=== PATIENT | male | born 1965 | race Caucasian/White ===

== ENCOUNTER 2016-11-24 15:08 | Emergency (ER) | payer OTHER ==
[~2016-11-24] VITALS: Ht 177.8 cm; Wt 83.9 kg
[2016-11-24 15:15] VITALS: BP 135/82
--- NOTE | 2016-11-24 16:01 | ED UPPER/LOWER EXTREMITY COMPL ---
History of Present Illness General Chief Complaint: Laceration Procedure Stated Complaint: PT NEEDS LACERATION TO THE LEFT ARM Source: patient Exam Limitations: no limitations Vital Signs & Intake/Output Vital Signs & Intake/Output Vital Signs Date Time Temp Pulse Resp B/P B/P Pulse O2 O2 Flow FiO2 Mean Ox Delivery Rate 11/24 1649 Room Air 11/24 1515 96.9 72 18 135/82 100 Room Air Allergies Coded Allergies: NO KNOWN ALLERGIES (05/26/11) Reconcile Medications No Known Home Medications Triage Note: PT TO ED FOR LAC TO L FOREARM - NEEDS TETANUS. Triage Nurses Notes Reviewed? yes Onset: Just prior to arrival Duration: hour(s): (1) Timing: no prior history Severity: moderate Severity Numbers: 6 Pain/Injury Location: Left: Forearm. Method of Injury: laceration No Modifying Factors: none HPI: Patient is a 51-year-old male presenting to the emergency department with chief complaint of laceration to left forearm that happened prior to arrival. He reports that he was working with Tylenol and a piece of tile caught his arm. Unsure of tetanus immunization. Denies any numbness or tingling. No nausea vomiting fevers chills chest pain or shortness of breath. (FIDEL ROMERO) Past History Travel History Traveled to [place] past 21 day No Medical History Any Pertinent Medical History? see below for history Neurological: NONE EENT: NONE Cardiovascular: NONE Respiratory: NONE Gastrointestinal: NONE Hepatic: NONE Renal: NONE Musculoskeletal: NONE Psychiatric: NONE Endocrine: NONE Blood Disorders: NONE Cancer(s): NONE Surgical History Surgical History: non-contributory Psychosocial History What is your primary language Nigerien Tobacco Use: Never used ETOH Use: denies use Illicit Drug Use: denies illicit drug use Family History Hx Contributory? No (FIDEL ROMERO) Review of Systems Review of Systems Constitutional: Reports: no symptoms. Comments Review of systems: See HPI, All other systems negative. Constitutional, no chills fever or weight loss HEENT: No visual changes no sore throat no congestion Cardiovascular: No chest pain Skin, no jaundice no rashes Respiratory: No dyspnea cough sputum or hemoptysis GI: No nausea no vomiting Muscle skeletal: no back pain, no neck pain, Neurologic: No numbness Psych: No stress anxiety Immunology: No splenectomy or history of AIDS (FIDEL ROMERO) Physical Exam Physical Exam General Appearance: well developed/nourished, no apparent distress, alert, comfortable Comments: Well-developed well-nourished person in no acute distress HEENT: NPupils equally round and reactive to light and accommodation. Nose is atraumatic. Neck: Normal inspection Back: Nontender Cardiovascular: normal JVP Respiratory: No respiratory distress. Extremity: No edema, Neuro: Alert oriented x3, motor sensory thalia Skin: Flap-like laceration approximately 4 cm in size noted on the volar aspect of the left forearm. No active bleeding. Nontender to palpation. Well approximating. Subcutaneous. No foreign bodies. Psych: Mood and affect is normal, memory and judgment is normal. (FIDEL ROMERO) Progress Differential Diagnosis: LACERATION, ABRASION, CONTUSION Plan of Care: Current Medications Sig/Laxmi Start time Last Medication Dose Stop Time Status Admin Lidocaine 20 ML ONCE ONE 11/24 1614 UNVr (Lidocaine 1%) 11/25 1615 Tetanus/Diphtheria 0.5 ML ONCE ONE 11/24 1614 UNVr Toxoids Adsorbed 11/24 161 (Decavac) Departure Departure Time of Disposition: 1649 Disposition: HOME OR SELF CARE Condition: Stable Clinical Impression Primary Impression: Laceration Referrals: PATIENT HAS NO PRIMARY CARE DR (PCP/Family) Additional Instructions: Return in 10 days for suture removal. Keep clean and dry. Return sooner for any increased redness pain swelling or discharge or fevers. Take Motrin or Tylenol [id number] to help with pain. Departure Forms: Customer Survey General Discharge Information Prescriptions: Current Visit Scripts No Known Home Medications (FIDEL ROMERO) PA/FIELD WORKER Co-Sign Statement Statement: ED Attending supervision documentation- [] I saw and evaluated the patient. I have also reviewed all the pertinent lab results and diagnostic results. I agree with the findings and the plan of care as documented in the PA's/FIELD WORKER's documentation. [x] I have reviewed the ED Record and agree with the PA's/FIELD WORKER's documentation. [] Additions or exceptions (if any) to the PAs/FIELD WORKER's note and plan are summarized below: [] (MARIA L KNOTT DO) Procedures Laceration/Wound Repair Laceration/Wound Repair: Wound Location: upper extremity Wound's Depth, Shape: flap, superficial Wound Length (cm): 4 Wound Explored: clean, no foreign body removed, irrigated extensively Irrigated w/ Saline (ccs): 500 Betadine Prep? Yes Anesthesia: 1% lidocaine Volume Anesthetic (ccs): 4 Wound Debrided: minimal Wound Repaired With: sutures Suture Size/Type: 5:0, nylon Number of Sutures: 14 Layer Closure? No Date of Last Tetanus: 11/24/16 Tetanus Status: up to date Progress: TOLERATED PROCEDURE WELL (PATTI KENNEY,FIDEL)
== END 2016-11-24 17:03 ==
LOC: ERH 15:08
DX: S51.812A Laceration without foreign body of left forearm, initial encounter (principal); W45.8XXA Other foreign body or object entering through skin, initial encounter; Y93.89 Activity, other specified; Y92.9 Unspecified place or not applicable
CPT/HCPCS: 90471; 90714